=== PATIENT | female | born 1980 | race Caucasian/White ===

== ENCOUNTER 2021-06-06 05:34 | Observation (INO) | payer BC ==
[2021-05-31 16:55] LABS: BASOPHILS # (AUTO) 0.1 X10'3 (0-0.2); BASOPHILS % (AUTO) 1.1 % (0-1); EOSINOPHILS # (AUTO) 0.2 X10'3 (0-0.9); EOSINOPHILS % (AUTO) 4.1 % (0-6); LYMPHOCYTES # (AUTO) 1.4 X10'3 (1.1-4.8); LYMPHOCYTES % (AUTO) 27.7 % (21-51); MEAN CORPUSCULAR HEMOGLOBIN 31.1 PG (27.0-31.0); MEAN CORPUSCULAR HGB CONC 34.3 g/dL (33.0-36.5); MEAN CORPUSCULAR VOLUME 90.8 FL (78-98); MEAN PLATELET VOLUME 9.6 FL (7.4-10.4); MONOCYTES # (AUTO) 0.5 X10'3 (0-0.9); MONOCYTES % (AUTO) 9.9 % (2-12); NEUTROPHILS # (AUTO) 2.9 X10'3 (1.8-7.7); NEUTROPHILS % (AUTO) 57.2 % (42-75); PRE OP HEMATOCRIT 37.9 % (35.0-45.0); PRE OP PLATELET COUNT 214 X10'3 (140-440); RED BLOOD COUNT 4.17 X10'6 (4.20-5.60); RED CELL DISTRIBUTION WIDTH 13.6 % (11.5-14.5)
[2021-05-31 16:55] LABS: CLARITY,URINE CLEAR (Clear); COLOR,URINE YELLOW (Yellow); GLUCOSE, URINE NEGATIVE (Neg); KETONES,URINE NEGATIVE (Neg); LEUKOCYTE ESTERASE ,URINE NEGATIVE (Neg); NITRITES, URINE NEGATIVE (Neg); OCCULT BLOOD,URINE NEGATIVE (Neg); PH,URINE 7.5 (4.8-8.0); PROTEIN,URINE NEGATIVE (Neg); UROBILINOGEN,URINE 0.2 E.U/dL (0.2-1.0)
[2021-05-31 16:57] LABS: UA COLLECTION TYPE NON-SPECIFIED
[2021-05-31 17:07] LABS: HCG SERUM QL NEGATIVE
[2021-05-31 17:08] LABS: PRE OP PROTIME 10.5 SECONDS (9.0-12.0)
[2021-05-31 17:18] LABS: ALBUMIN 4.1 G/DL (3.4-5.0); ALBUMIN/GLOBULIN RATIO 1.4 (1.1-1.5); ALKALINE PHOSPHATASE 79 IU/L (46-116); BLOOD UREA NITROGEN 15 MG/DL (7-18); BUN/CREATININE RATIO 17.4 (6.6-38.0); CALCIUM 8.4 MG/DL (8.5-10.1); CHLORIDE 104 MMOL/L (99-107); CREATININE 0.86 MG/DL (0.40-0.90); PRE OP ALT 20 U/L (30-65); PRE OP ANION GAP 4 (8-16); PRE OP AST 15 U/L (10-37); PRE OP BILIRUB, TOTAL 0.2 MG/DL (0.0-1.0); PRE OP GLUCOSE 90 MG/DL (70-104); PRE OP POTASSIUM 3.9 MMOL/L (3.4-5.1); PRE OP SODIUM 140 MMOL/L (135-145); TOTAL CARBON DIOXIDE 31.8 MMOL/L (24-32); TOTAL PROTEIN 7.1 G/DL (6.4-8.2); eGFR 73 ML/MIN
[2021-06-06] VITALS (20 sets, daily range): BP systolic 113–149; BP diastolic 62–86
[~2021-06-06] VITALS: Ht 175.3 cm; Wt 98.1 kg
[~2021-06-06 05:34] MED LIST: ALPR-623 PO; ESCI5TAB16 PO; LEVO100T PO; ceFOXitin 2GM-NS 100mL ADDvant 100 ML IV ONE; famotidine 20mg tablet PO ONE; ringers solution, lacted 1,000 ML IV SCH
[2021-06-06] MEDS ORDERED: LIDOcaine 1% (10mg/ml) 2ml vial ONE (06:19)
[2021-06-06] MEDS ORDERED: LIDOcaine 1% W/epiNEPHrine 1:100,000 20ml vial ONE (06:43)
[2021-06-06] MEDS ORDERED: BUPIVAcaine 0.5% inj/PF 30 ML ONE (06:43)
[2021-06-06] MEDS ORDERED: diazepam inj 5 MG/ML inj. IV ONE (06:45)
[2021-06-06] MEDS ORDERED: scopolamine 1.5mg patch.TD72 (72-hour patch) TD SCH (06:45)
[2021-06-06] MEDS ORDERED: scopolamine 1mg/72 hr patch TD ONE (06:50)
[2021-06-06] MEDS ORDERED: ringers solution, lacted 1,000 ML IV SCH (07:45)
[2021-06-06] MEDS ORDERED: ondansetron/PF 4mg/2ml inj IV PRN ×2 (07:45→10:20)
[2021-06-06] MEDS ORDERED: meperidine/PF 25mg/ml syringe IV PRN ×2 (07:45)
[2021-06-06] MEDS ORDERED: morphine 4 MG/ML inj SYRINge IV PRN (07:45)
[2021-06-06] MEDS ORDERED: morphine 2 MG/ML inj. syringe IV PRN (07:45)
[2021-06-06] MEDS ORDERED: proCHLORperazine 10 MG/2 ml inj IV PRN (07:45)
[2021-06-06] MEDS ORDERED: fluoroscein sod 10% (100mg/ml) 5ml vial ONE (07:52)
[2021-06-06] MEDS ORDERED: sevoflurane 250ml liquid IH ONE (07:52)
[2021-06-06] MEDS ORDERED: midazolam 1 mg/ML 2ml injection ONE (07:52)
[2021-06-06] MEDS ORDERED: fentaNYL /PF 50mcg/ml 5ml ampule ONE (07:52)
[2021-06-06] MEDS ORDERED: LIDOcaine 2% (20mg/ml) 5ml vial ONE (07:57)
[2021-06-06] MEDS ORDERED: propofol inj 20 ML IV ONE (07:57)
[2021-06-06] MEDS ORDERED: rocuronium 10mg/ml inj IV ONE ×2 (08:17→10:13)
[2021-06-06] MEDS ORDERED: dexamethasone sod phosphate 4mg/ml inj. ONE (08:17)
[2021-06-06] MEDS ORDERED: ondansetron/PF 4mg/2ml inj ONE (08:17)
[2021-06-06] MEDS ORDERED: LIDOcaine 1% 30ml preserv. free vial ONE (09:54)
[2021-06-06] MEDS ORDERED: acetaminophen 1,000mg/100ml IV 100 ML IV ONE (10:19)
[2021-06-06] MEDS ORDERED: naloxone 0.4 mg/ml inj IV PRN (10:20)
[2021-06-06] MEDS ORDERED: mag hydrox/Alum hydrox/simeth 30ml oral suspension PO PRN (10:20)
[2021-06-06] MEDS ORDERED: CADD PCA waste documentation MC PRN (10:20)
[2021-06-06] MEDS ORDERED: temazepam 15mg capsule PO PRN (10:20)
[2021-06-06] MEDS ORDERED: LORazepam 2 mg/ml vial IV PRN (10:20)
[2021-06-06] MEDS ORDERED: normal saline 500ML IV soln IV PRN (10:20)
[2021-06-06] MEDS ORDERED: oxyCODONE/APAP 5-325mg tablet PO PRN (10:20)
[2021-06-06] MEDS ORDERED: glycopyrrolate 0.2mg/ml inj ONE (10:26)
[2021-06-06] MEDS ORDERED: neostigmine methylsulfate 1 MG/ML 10ml vial ONE (10:26)
--- NOTE | 2021-06-06 10:34 | NUR ---
Received from OR via [facility] IN STABLE CONDITION , accompanied by Anesthesiologist and HORSE STUD MANAGER report given by HORSE STUD MANAGER AND Anesthesiolgist. Addendum: 06/06/21 at 1125 by Elena Muñoz RN Amended: Links added.
[2021-06-06] MEDS: meperidine/PF 25mg/ml syringe IV PRN ×3 (10:53→16:25)
[2021-06-06] MEDS: ketorolac trometh. 30mg/ml inj. IV PRN ×2 (11:48→18:06)
--- NOTE | 2021-06-06 12:00 | NUR ---
Patient in room EV 356. I have received report from Angie RN and had the opportunity to ask questions and assume patient care.. patient orientated to room. three lap sited with anna marie CDI. no drainage observed on lydia pad. patients reports pain 10/10. Dilaudid cadd pump set up and patient instructed on use. VSS. will continue to monitor.
--- NOTE | 2021-06-06 12:04 | NUR ---
PATIENT TRANSFERRED FROM PACU TO ROOM 356A IN STABLE CONDITION AFTER REPORT GIVEN. PATIENT TRANSFERRED VIA BED WITH RN. Addendum: 06/06/21 at 1227 by Elena Muñoz RN Amended: Links added.
--- NOTE | 2021-06-06 12:30 | NUR ---
Patient in room VE 356. I have received report from Angie RN and had the opportunity to ask questions and assume patient care.
[2021-06-06] MEDS: HYDROmorph./NS 0.2 mg/ml CADD 100 ML IV SCH ×7 (12:46→23:00)
[2021-06-06] MEDS: ringers solution, lacted 1,000 ML IV SCH ×2 (12:48→20:26)
[2021-06-06] MEDS: simethicone 80mg chew tab PO SCH ×2 (16:32→20:25)
--- NOTE | 2021-06-06 17:39 | NUR ---
patient VSS. . in room. urine output 150mls, patient encouraged to increase PO INTAKE. USING DILAUDID CADD appropriately.
--- NOTE | 2021-06-06 18:54 | NUR ---
Toradol given for pain. urine output improving with increase in PO fluids. resting in bed VSS. report given to Umu NICK
--- NOTE | 2021-06-06 18:55 | NUR ---
Patient in room EV 356. I have received report from LASHON NICK and had the opportunity to ask questions and assume patient care.
[2021-06-06] MEDS: docusate sod 100mg capsule PO SCH (20:25)
[2021-06-06] MEDS: diphenhydrAMINE 50 mg/ml inj IV PRN (21:57)
[2021-06-07] VITALS: BP 115/72
[2021-06-07] MEDS: HYDROmorph./NS 0.2 mg/ml CADD 100 ML IV SCH ×5 (01:00→09:00)
[2021-06-07 04:00] VITALS: BP 120/87
[2021-06-07] MEDS: ringers solution, lacted 1,000 ML IV SCH (04:02)
[2021-06-07] MEDS: diphenhydrAMINE 50 mg/ml inj IV PRN (04:03)
--- NOTE | 2021-06-07 06:20 | NUR ---
Problems reprioritized. Patient report given, questions answered & plan of care reviewed with LASHON NICK.
--- NOTE | 2021-06-07 06:23 | NUR ---
Patient in room EV 356. I have received report from Umu NICK and had the opportunity to ask questions and assume patient care.
[2021-06-07 06:27] LABS: BASOPHILS % (AUTO) 0.3 % (0-1); EOSINOPHILS % (AUTO) 0.4 % (0-6); HEMATOCRIT 35.9 % (35.0-45.0); HEMOGLOBIN 12.1 g/dl (12.0-16.0); LYMPHOCYTES # (AUTO) 1.3 X10'3 (1.1-4.8); LYMPHOCYTES % (AUTO) 21.8 % (21-51); MEAN CORPUSCULAR HEMOGLOBIN 31.3 PG (27.0-31.0); MEAN CORPUSCULAR HGB CONC 33.8 g/dL (33.0-36.5); MEAN CORPUSCULAR VOLUME 92.5 FL (78-98); MEAN PLATELET VOLUME 9.8 FL (7.4-10.4); MONOCYTES # (AUTO) 0.6 X10'3 (0-0.9); MONOCYTES % (AUTO) 10.1 % (2-12); NEUTROPHILS # (AUTO) 4.1 X10'3 (1.8-7.7); NEUTROPHILS % (AUTO) 67.4 % (42-75); PLATELET COUNT 188 X10'3 (140-440); RED BLOOD COUNT 3.88 X10'6 (4.20-5.60); RED CELL DISTRIBUTION WIDTH 13.9 % (11.5-14.5); WHITE BLOOD COUNT 6.1 X10'3 (4.5-11.0)
[2021-06-07 06:38] LABS: ALBUMIN 3.3 G/DL (3.4-5.0); ANION GAP 7 (8-16); BLOOD UREA NITROGEN 9 MG/DL (7-18); BUN/CREATININE RATIO 11.1 (6.6-38.0); CALCIUM 8.1 MG/DL (8.5-10.1); CHLORIDE 105 MMOL/L (99-107); CREATININE 0.81 MG/DL (0.40-0.90); GLUCOSE 96 MG/DL (70-104); SODIUM 138 MMOL/L (135-145); TOTAL CARBON DIOXIDE 26.5 MMOL/L (24-32); eGFR 79 ML/MIN
[2021-06-07] MEDS ORDERED: levoTHYROXINE 100mcg tablet PO SCH (07:00)
[2021-06-07] MEDS: docusate sod 100mg capsule PO SCH (07:58)
[2021-06-07] MEDS: simethicone 80mg chew tab PO SCH (07:58)
[2021-06-07] MEDS: ketorolac trometh. 30mg/ml inj. IV PRN (07:59)
[2021-06-07] MEDS ORDERED: ESCITALOPRAM OXALATE 5 MG TABLET PO SCH (08:00)
--- NOTE | 2021-06-07 11:08 | NUR ---
patient painful this am encouraged to use cadd, stated this helped. Dilaudid cadd Dc and patient given percocet. Up ambulating and to bathroom. voided 200mls bladder scanned > 428 observed. patient ambulated again and managed to void 800 mls with 109 post void residual. All Dc instructions given to patient and . lapsites CDI. minimal vaginal bleeding observed. DR lantigua cleared patient for DC. Dc home via private car with spouse to home in stable condition.
== END 2021-06-07 11:03 | disposition home or self-care (01) ==
LOC: PAS 05:34 → SUR 3N 10:18 → PAS 06-07 11:03
PROVIDERS: ADMIT Obstetrics & Gynecology; ATTEND Obstetrics & Gynecology
DX: N92.0 Excessive and frequent menstruation with regular cycle (principal); N80.3 Endometriosis of pelvic peritoneum; N30.10 Interstitial cystitis (chronic) without hematuria; N80.0 Endometriosis of uterus; R10.2 Pelvic and perineal pain; F41.9 Anxiety disorder, unspecified; Z90.49 Acquired absence of other specified parts of digestive tract; Z79.899 Other long term (current) drug therapy
CPT/HCPCS: 36415; 58552; 80048; 80053; 81003; 82948; 84443; 84703; 85025; 85610; 85730; 86885; 86900; 86901; 87081; 96361; 96374; 96375; C1758; G0378; J0131; J0694; J1100; J1170; J1200; J1885; J2001; J2175; J2250; J2270; J2405; J2704; J2710; J3010; J3360; J7120; U0003; U0005; A4355; A4618; A6250; A7000; J3490